=== PATIENT | female | born 2000 | race African-American/Black ===

== ENCOUNTER 2020-10-16 08:46 | Emergency (ER) | payer MEDICAID, OTHER ==
[~2020-10-16] VITALS: Ht 167.6 cm; Wt 59.0 kg
[2020-10-16] MEDS ORDERED: ONDANSETRON HCL 4MG/2ML INJ IV STA (08:59)
[2020-10-16] MEDS ORDERED: SODIUM CHLORIDE 0.9% 1,000 ML IV ONE (09:00)
[2020-10-16 09:40] LABS: CLARITY URINE CLOUDY (CLEAR); COLOR URINE YELLOW (YELLOW); KETONES URINE 1+ (NEGATIVE); LEUKOCYTE ESTERASE URINE 3+ (NEGATIVE); NITRITE URINE NEGATIVE (NEGATIVE); OCCULT BLOOD URINE NEGATIVE (NEGATIVE); PH URINE 7.5 (4.5-8.0); PROTEIN URINE TRACE (NEGATIVE); SPECIFIC GRAVITY URINE 1.019 (1.005-1.030); UROBILINOGEN URINE 0.2 E.U./dL (0.2-1.0)
[2020-10-16 09:43] LABS: CHLORIDE 105 mEq/L (98-107)
[2020-10-16 09:44] LABS: BASOPHILS % 0.5 % (0.0-2.0); EOSINOPHILS % 1.1 % (0.0-5.0); HEMATOCRIT. 31.2 % (36.0-48.0); HEMOGLOBIN. 9.8 g/dL (12.0-16.0); LYMPHOCYTES % 11.6 % (20.0-50.0); MEAN CORPUSCULAR HEMOGLOBIN 23.8 pg (28.0-32.0); MEAN CORPUSCULAR VOLUME 75.5 fL (81.0-99.0); MEAN PLATELET VOLUME 8.4 fl (7.4-10.4); MONOCYTES % 4.3 % (2.0-8.0); NEUTROPHILS % 82.5 % (40.0-76.0); PLATELET 499 x1000/uL (130-400); RED BLOOD CELL COUNT 4.13 mill/uL (4.2-5.4); RED CELL DISTRIBUTION WIDTH 16.9 % (11.6-14.6)
[2020-10-16 09:47] LABS: PROTHROMBIN TIME 10.9 sec (9.6-11.0)
[2020-10-16 09:49] LABS: *BARBITURATES SCREEN URINE NEGATIVE (NEGATIVE); *BENZODIAZEPINES SCREEN URINE NEGATIVE (NEGATIVE); *COCAINE SCREEN URINE NEGATIVE (NEGATIVE); METHADONE URINE SCREEN NEGATIVE (NEGATIVE); OPIATES URINE SCREEN NEGATIVE (NEGATIVE)
[2020-10-16 09:50] LABS: *AMPHETAMINES SCREEN URINE NEGATIVE (NEGATIVE); PHENCYCLIDINE URINE SCREEN NEGATIVE (NEGATIVE)
[2020-10-16 09:54] LABS: B-HCG QUANTITATIVE < 1 mIU/mL (<3)
[2020-10-16 10:02] LABS: CANNABINOID URINE SCREEN PRESUMTIVE POSITIVE (NEGATIVE)
[2020-10-16] MEDS ORDERED: CEFTRIAXONE 1 G PREMIX 50 ML IV ONE (11:15)
[2020-10-16] MEDS ORDERED: KETOROLAC 30MG/ML VIAL IV ONE (11:15)
[2020-10-16 12:46] LABS: BASOPHILS % 0.3 % (0.0-2.0); EOSINOPHILS % 0.3 % (0.0-5.0); HEMATOCRIT. 26.6 % (36.0-48.0); HEMOGLOBIN. 8.6 g/dL (12.0-16.0); LYMPHOCYTES % 11.2 % (20.0-50.0); MEAN CORPUSCULAR HEMOGLOBIN 24.3 pg (28.0-32.0); MEAN CORPUSCULAR VOLUME 75.3 fL (81.0-99.0); MEAN PLATELET VOLUME 8.2 fl (7.4-10.4); MONOCYTES % 2.7 % (2.0-8.0); NEUTROPHILS % 85.5 % (40.0-76.0); PLATELET 418 x1000/uL (130-400); RED BLOOD CELL COUNT 3.53 mill/uL (4.2-5.4); RED CELL DISTRIBUTION WIDTH 16.9 % (11.6-14.6)
[2020-10-16] MEDS ORDERED: ONDA4TAB5 MT (13:15)
[2020-10-16] MEDS ORDERED: PYR200 MT (13:15)
[2020-10-16] MEDS ORDERED: NITR-87 MT (13:15)
[2020-10-16] MEDS ORDERED: IBUP-2029 MT (13:15)
[2020-10-16 13:35] VITALS: BP 110/66
== END 2020-10-16 13:37 | disposition home or self-care (01) ==
LOC: ER 09:14 → CANBEDREQ 16:12
DX: N39.0 Urinary tract infection, site not specified (principal); N83.209 Unspecified ovarian cyst, unspecified side; R11.10 Vomiting, unspecified
CPT/HCPCS: 36415; 76830; 76856; 80053; 80305; 81003; 81025; 83690; 84702; 85025; 85610; 86850; 86900; 86901; 87086; 93005; 96361; 96365; 96375; 99285; J0696; J1885; J2405; J7030

== ENCOUNTER 2021-02-19 23:40 | Emergency (ER) | payer OTHER ==
[~2021-02-19] VITALS: Ht 160 cm; Wt 58.0 kg
[~2021-02-19 23:40] MED LIST: IBUP-2029 MT; NITR-87 MT; ONDA4TAB5 MT; PYR200 MT
[2021-02-20] MEDS ORDERED: BACITRACIN ZINC OINT UDPKT TOP ONE (01:30)
[2021-02-20] MEDS ORDERED: LIDOCAINE HCL/PF 1% 10 MG/ML 5ML VIAL INFIL ONE (01:30)
[2021-02-20] MEDS ORDERED: SULF1TAB48 PO (01:53)
[2021-02-20] MEDS ORDERED: CEPH500C2 PO (01:53)
[2021-02-20] MEDS ORDERED: IBUP-2029 PO (01:53)
[2021-02-20] MEDS ORDERED: IBUPROFEN 600MG TABLET PO STA (02:13)
[2021-02-20 03:19] VITALS: BP 106/69
== END 2021-02-20 03:19 | disposition home or self-care (01) ==
LOC: ER 23:40
DX: L02.411 Cutaneous abscess of right axilla (principal); L72.3 Sebaceous cyst
CPT/HCPCS: 99283; J3490; Z7610

== ENCOUNTER 2021-12-08 22:23 | Emergency (ER) | payer OTHER ==
[~2021-12-08] VITALS: Ht 162.6 cm; Wt 59.0 kg
[~2021-12-08 22:23] MED LIST changes: +CEPH500C2 PO; +IBUP-2029 PO; +SULF1TAB48 PO
[2021-12-08 22:55] VITALS: BP 124/73
[2021-12-09] MEDS ORDERED: IBUP-2028 MT (09:02)
[2021-12-09] MEDS ORDERED: CEPH500C2 MT (09:02)
== END 2021-12-09 03:27 | disposition left against medical advice (07) ==
LOC: ER 22:23
DX: G89.29 Other chronic pain (principal); M19.90 Unspecified osteoarthritis, unspecified site
CPT/HCPCS: 99281

== ENCOUNTER 2021-12-09 04:24 | Emergency (ER) | payer OTHER ==
[~2021-12-09] VITALS: Ht 160 cm; Wt 59.0 kg
[2021-12-09] MEDS ORDERED: IBUPROFEN 600MG TABLET PO STA (06:22)
[2021-12-09] MEDS ORDERED: IBUPROFEN 400MG TABLET PO ONE (06:30)
[2021-12-09 06:55] VITALS: BP 101/50
[2021-12-09 07:17] LABS: CLARITY URINE CLEAR (CLEAR); COLOR URINE YELLOW (YELLOW); KETONES URINE 3+ (NEGATIVE); LEUKOCYTE ESTERASE URINE 1+ (NEGATIVE); NITRITE URINE NEGATIVE (NEGATIVE); OCCULT BLOOD URINE 2+ (NEGATIVE); PROTEIN URINE TRACE (NEGATIVE); SPECIFIC GRAVITY URINE 1.034 (1.005-1.030)
[2021-12-09 07:25] LABS: BASOPHILS % 0.7 % (0.0-2.0); CHLORIDE 108 mEq/L (98-107); EOSINOPHILS % 3.5 % (0.0-5.0); HEMATOCRIT. 32.3 % (36.0-48.0); HEMOGLOBIN. 10.2 g/dL (12.0-16.0); LYMPHOCYTES % 44.7 % (20.0-50.0); MEAN CORPUSCULAR HEMOGLOBIN 25.6 pg (28.0-32.0); MEAN CORPUSCULAR VOLUME 80.8 fL (81.0-99.0); MEAN PLATELET VOLUME 9.4 fl (7.4-10.4); MONOCYTES % 4.8 % (2.0-8.0); NEUTROPHILS % 46.3 % (40.0-76.0); PLATELET 224 x1000/uL (130-400); RED CELL DISTRIBUTION WIDTH 18.3 % (11.6-14.6)
[2021-12-09 07:36] LABS: HCG SCREEN NEGATIVE
[2021-12-09] MEDS ORDERED: CEFTRIAXONE SODIUM 1 G/VIAL IM ONE (08:30)
[2021-12-09] MEDS ORDERED: IBUP-2028 MT (09:02)
[2021-12-09] MEDS ORDERED: CEPH500C2 MT (09:02)
== END 2021-12-09 09:50 | disposition home or self-care (01) ==
LOC: ER 04:24
DX: N39.0 Urinary tract infection, site not specified (principal); M79.18 Myalgia, other site; D64.9 Anemia, unspecified; M19.90 Unspecified osteoarthritis, unspecified site
CPT/HCPCS: 36415; 80053; 81003; 84703; 85025; 87086; 99283; J0696